=== PATIENT | female | born 1965 | race Caucasian/White ===

== ENCOUNTER → 2018-08-04 08:33 | Outpatient (CLI) | payer BC, SELFPAY ==
--- NOTE | 2018-08-04 | CA_ITS ---
PROCEDURE: 2-D M-mode and color Doppler study INDICATIONS FOR THE TEST: Chest pain+ COPD Heart Murmur Tobacco Smoking Palpitations Fatigue Syncope Edema Hypertension+Diabetes Mellitus Rheumatic Fever SOB+WU Obesity+Hyperlipidemia Family History HD Additional History PATIENT INFORMATION HEIGHT: 64 WEIGHT: 205 GENDER: Female B/P: 167/106 2-D/M-MODE INTERPRETATION: 2-D MEASUREMENTS OBSERVED VALUES IN CMS Right Ventricular Dimension (RVDd) 2.6 Interventricular Septum (Thickness)(IVsd) 0.9 Left Ventricular Internal Dimensions(LVIDd) 4.3 Left Ventricular Posterior Wall (Thickness)(LVPWd) 0.9 Aortic Root 2.8 Aortic Cusp Separation 2.0 Left Atrial Dimensions (LAD) 3.2 2D 1. Left atrium is normal size, left ventricle is normal size, there is no concentric left ventricular hypertrophy, visually estimated ejection fraction 55% with no regional wall motion abnormality. 2. The right atrium and right ventricle are normal size and contractility. 3. The aortic, mitral and tricuspid valve are grossly normal. 4. The pulmonic valve is poorly visualized. 5. No significant pericardial effusion noted. DOPPLER INTERROGATION: Doppler interrogation of the aortic, mitral and tricuspid valvular presence of mild mitral and tricuspid regurgitation, tricuspid regurgitation jet velocity is inadequate for calculation of the right ventricular systolic pressure, diastolic parameters are within normal range. CONCLUSION: 1. Normal left ventricular size, preserved left ventricular systolic function, visually estimated ejection fraction 55% with no regional wall motion abnormality, diastolic parameters are within normal range. 2. Mild mitral and tricuspid regurgitation 3. No significant pericardial effusion noted.
== END ==
PROVIDERS: PCP Family Medicine; Visit Provider Nurse Practitioner Family
DX: R07.9 Chest pain, unspecified (principal); I10 Essential (primary) hypertension
CPT/HCPCS: 93017; 93306

== ENCOUNTER → 2019-11-08 16:19 | Outpatient (CLI) | payer BC, SELFPAY ==
[2019-11-08 17:02] LABS: Basophils % 0.3 % (0.1-2.0); Eosinophils # 0.1 K/mm3 (0.0-0.4); Eosinophils % 1.3 % (0.1-12.0); Hemoglobin 14.1 g/dL (12.2-16.2); Lymphocytes # 2.8 K/mm3 (0.7-4.5); Lymphocytes % 33.3 % (10-50); Mean Corpuscular HGB Conc 33.4 g/dL (31.8-35.4); Mean Corpuscular Hemoglobin 32.4 pg (27.0-31.2); Mean Platelet Volume 8.2 fl (7.4-10.4); Monocytes # 0.4 K/mm3 (0.1-1.0); Monocytes % 4.2 % (1.7-9.3); Neutrophils # 5.2 K/mm3 (1.8-7.8); Neutrophils % 60.9 % (37.0-80.0); Platelet Count 232 K/mm3 (142-424); Red Blood Count 4.34 M/mm3 (4.20-5.40); Red Cell Distribution Width 13.2 % (11.5-17.5); White Blood Count 8.5 K/mm3 (4.8-10.8)
[2019-11-08 20:17] LABS: Chloride 105 mmol/L (98-107); Potassium 4.5 mmoL/L (3.5-5.1); Sodium 139 mmol/L (136-145)
[2019-11-08 20:20] LABS: Alanine Aminotransferase 86 U/L (12-78); Albumin Level 4.1 g/dl (3.5-5.0); Albumin/Globulin Ratio 1.4 (1.1-1.8); Alkaline Phosphatase 80 U/L (38-126); Anion Gap 12.5 mEq/L (5-15); Aspartate Amino Transferase 50 U/L (14-36); Bilirubin,Total 0.4 mg/dl (0.2-1.3); Blood Urea Nitrogen 11 mg/dl (7-17); Calcium 9.4 mg/dl (8.4-10.2); Carbon Dioxide 26 mmol/L (22.0-30.0); Estimated Glomerular Filt Rate 88 ml/min (>60); GFR (African American) 106 ML/MIN (>60); Glucose 93 mg/dl (74-100); Total Protein,Serum 7.1 g/dl (6.3-8.2)
[2019-11-08 20:21] LABS: Magnesium 2.2 mg/dl (1.6-2.3)
[2019-11-08 20:52] LABS: Thyroid Stimulating Hormone 0.62 uIU/mL (0.465-4.68)
[2019-11-10 13:06] LABS: Vitamin B12 904 pg/mL (232-1245)
[2019-11-14 19:43] LABS: Zinc 90 ug/dL (56-134)
== END ==
PROVIDERS: Visit Provider Nurse Practitioner Family
DX: R10.10 Upper abdominal pain, unspecified (principal); R43.2 Parageusia; K21.9 Gastro-esophageal reflux disease without esophagitis; R25.2 Cramp and spasm
CPT/HCPCS: 36415; 80053; 82607; 83735; 84443; 84630; 85025

== ENCOUNTER → 2019-12-04 08:20 | Outpatient (CLI) | payer BC, SELFPAY ==
--- NOTE | 2019-12-04 08:28 | US_ITS ---
PROCEDURE: US ABDOMEN LIMITED CLINICAL INDICATION: ELEVATED LIVER ENZYMES COMPARISON: US RUQ US RUQ-(ABD LTD)1ORGAN/QUAD/FU from 09/27/2016 FINDINGS: PANCREAS: Unremarkable. No obvious mass or abnormal fluid collection. No ductal dilatation LIVER: No focal liver lesions demonstrated. There is overall increased in somewhat coarsened appearing echogenicity consistent hepatic steatosis. There has been no significant interval progression of the fatty infiltration since the previous exam. Flow is hepatopetal in the nondilated main portal vein. RIGHT KIDNEY: The right kidney measures 10.0 x 4.2 x 5.9 cm and appears sonographically normal. GALLBLADDER: The gallbladder is normal in size and there may be a trace amount of biliary sludge but no definite gallstones are seen. The common bile duct is normal in caliber. IMPRESSION: Diffuse hepatic steatosis, question small amount of biliary sludge, no other abnormality noted Dictated by: Dr. Sander Terry MD 12/04/2019 10:30 Dr. Sander Terry MD in [place] 12/04/2019 10:30
== END ==
PROVIDERS: PCP Family Medicine; Visit Provider Family Medicine
DX: R74.8 Abnormal levels of other serum enzymes (principal)
CPT/HCPCS: 76705

== ENCOUNTER → 2021-07-02 16:41 | Outpatient (CLI) | payer BC, SELFPAY ==
[2021-07-02 17:27] LABS: Alanine Aminotransferase 91 U/L (12-78); Albumin Level 4.1 g/dl (3.5-5.0); Alkaline Phosphatase 84 U/L (38-126); Aspartate Amino Transferase 52 U/L (14-36); Bilirubin,Direct 0.1 mg/dl (0.0-0.4); Bilirubin,Indirect 0.2 mg/dL (0.0-0.9); Bilirubin,Total 0.3 mg/dl (0.2-1.3); Bilirubin,Unconjugated 0.2 mg/dL (0.0-1.1)
[2021-07-04 05:10] LABS: Hep A Ab, IgM Negative (Negative); Hepatitis B Core Antibody IgM Negative (Negative); Hepatitis B Surface Antigen Negative (Negative); Hepatitis C Antibody <0.1 s/co ratio (0.0-0.9)
== END ==
PROVIDERS: PCP Nurse Practitioner Family; Visit Provider Nurse Practitioner Family
DX: R74.8 Abnormal levels of other serum enzymes (principal)
CPT/HCPCS: 36415; 80074; 80076

== ENCOUNTER → 2021-07-08 08:11 | Outpatient (CLI) | payer BC, SELFPAY ==
--- NOTE | 2021-07-08 08:28 | US_ITS ---
FINAL REPORT CLINICAL HISTORY: ELEVATED LIVER ENZYMES; obesity COMPARISON: December 04, 2019 FINDINGS: Sonographic images of the right upper quadrant were obtained. The pancreas is partially obscured.The liver is fatty infiltrated.The gallbladder appears normal without evidence of gallstones.There is no evidence of biliary ductal dilatation.The common duct measures 4mm. Limited images of the right kidney are unremarkable. IMPRESSION: Fatty infiltration of the liver. Reviewed, Interpreted and Dictated by Ghulam Panchal III, MD Transcribed by Brock Ricks Authenticated by Ghulam Panchal III, MD on 07/08/2021 10:15:06 AM [facility]
== END ==
PROVIDERS: PCP Nurse Practitioner Family; Visit Provider Nurse Practitioner Family
DX: R74.8 Abnormal levels of other serum enzymes (principal)
CPT/HCPCS: 76705

== ENCOUNTER → 2022-01-19 14:43 | Outpatient (CLI) | payer OTHER, SELFPAY ==
--- NOTE | 2022-01-19 15:21 | XR_ITS ---
FINAL REPORT CLINICAL HISTORY: SWELLING MASS AND LUMP LEFT LOWER LIMB FINDINGS: Left tibia fibula Two views were obtained. There is no acute fracture or dislocation. The joint spaces appear normal. No soft tissue abnormality is identified. No mass is identified. IMPRESSION: No mass identified. Reviewed, Interpreted and Dictated by Ghulam Panchal III, MD Transcribed by Ann Oneill Authenticated and [facility]
--- NOTE | 2022-01-19 15:21 | XR_ITS ---
FINAL REPORT CLINICAL HISTORY: LEFT LOWER LIMB SWELLING MASS AND LUMP FINDINGS: Left knee Three views were obtained. There is no acute fracture or dislocation. No joint effusion is identified. The joint spaces appear normal. No soft tissue abnormality is identified. IMPRESSION: No acute process. Reviewed, Interpreted and Dictated by Ghulam Panchal III, MD Transcribed by Ann Oneill Authenticated and [facility]
[2022-01-19 16:01] LABS: Chloride 103 mmol/L (98-107); Potassium 4.1 mmoL/L (3.5-5.1); Sodium 140 mmol/L (136-145)
[2022-01-19 16:03] LABS: Alanine Aminotransferase 85 U/L (12-78); Alkaline Phosphatase 93 U/L (38-126); Anion Gap 13.1 mEq/L (5-15); Aspartate Amino Transferase 59 U/L (14-36); Bilirubin,Total 0.4 mg/dl (0.2-1.3); Blood Urea Nitrogen 10 mg/dl (7-17); Carbon Dioxide 28 mmol/L (22.0-30.0); Estimated Glomerular Filt Rate 87 ml/min (>60); GFR (African American) 105 ML/MIN (>60)
[2022-01-19 16:04] LABS: Albumin Level 4.4 g/dl (3.5-5.0); Albumin/Globulin Ratio 1.5 (1.1-1.8); Calcium 9.3 mg/dl (8.4-10.2); Glucose 79 mg/dl (74-100); Total Protein,Serum 7.4 g/dl (6.3-8.2)
[2022-01-19 16:09] LABS: C-Reactive Protein 5.2 mg/L (0-4)
[2022-01-19 17:18] LABS: Erythrocyte Sedimentation Rate 19 mm/hr (0-30)
[2022-01-19 17:19] LABS: Uric Acid 5.3 mg/dl (2.5-6.2)
[2022-01-21 07:14] LABS: RA Latex Turbid. 12.3 IU/mL (<14.0)
[2022-01-22 08:16] LABS: Antinuclear Antibodies, IFA Negative (.)
== END ==
LOC: LAB 14:45 → RAD 14:46
PROVIDERS: PCP Nurse Practitioner Family; Visit Provider Nurse Practitioner Family
DX: R22.42 Localized swelling, mass and lump, left lower limb (principal); M25.50 Pain in unspecified joint; K76.0 Fatty (change of) liver, not elsewhere classified; R74.8 Abnormal levels of other serum enzymes
CPT/HCPCS: 36415; 73562; 73590; 80053; 84550; 85651; 86038; 86140; 86431

== ENCOUNTER 2024-08-16 06:31 | Day surgery (SDC) | payer OTHER, SELFPAY ==
[2024-08-14 15:43] VITALS: BMI 36.0
[2024-08-16] MEDS: LACTATED RINGERS 1000ML 1,000 ML 50 ML IV (06:53)
[2024-08-16 06:55] VITALS: BP 130/79; PULSE 72; RESP 18; TEMP 36.6; O2SAT 97
--- NOTE | 2024-08-16 07:13 | EXP.ANES.CKL ---
[facility] Disclaimer: The information contained in this section may have been updated after the patient was seen, as this information can be updated by other users. Medical History Hyperlipidemia Hypertension History of LEEP (loop electrosurgical excision procedure) of cervix complicating Surgical History H/O dilation and curettage History of bunionectomy Tubal ligation status Family History Other No significant family history Social History Smoking Status: Current every day smoker alcohol intake: never substance use type: unknown current occupational status: employed Travel in the last 8 weeks?: None [facility] Anesthesia Checklist Patient Identification Patient Identification: Arm Band and Verbal (Name & ) Structural Data Admitted From: Home Planned Operative Procedure/s: colonscopy Consent for Planned Operative Procedure(s) Verified: Yes Verified Documents: Surgical Consent and History and Physical NPO Status Verified Time NPO: 00:00 Additional verifications Anesthesia Reactions: No Airway Assessment Mallampati Score:: Class II Dentition: Good Dentition Neurological Assessment Level of Consciousness: Awake, Alert and Appropriate Hx Seizures: No Anesthesia Plan Anesthesia Risk discussed: Yes Anesthesia Plan: Verified ASA Class: II Anesthesia Type: MAC
--- NOTE | 2024-08-16 07:45 | P.HP_ITS ---
History of Present Illness *Admission Date: 08/16/24 *Reason for visit:: Screening/surveillance for colon cancer *History of present illness: Mrs. Joseph is a 59-year-old female who is here for screening colonoscopy. Her last colonoscopy was 12 years ago and she does state that polyps were removed. The examination is deemed medically necessary for screening colonoscopy. The patient has been seen, interviewed and examined prior to the procedure by both myself and the anesthesia provider. [facility] Disclaimer: The information contained in this section may have been updated after the patient was seen, as this information can be updated by other users. Medical History Hyperlipidemia Hypertension History of LEEP (loop electrosurgical excision procedure) of cervix complicating Surgical History H/O dilation and curettage History of bunionectomy Tubal ligation status Family History Other No significant family history Social History (Updated 08/16/24 @ 07:14 by Lona Botello CRNA) Smoking Status: Current every day smoker alcohol intake: never substance use type: unknown current occupational status: employed Travel in the last 8 weeks?: None Have you lived/traveled outside US in past 30 days?: No Contact w/someone who lives/traveled outside US past 30 days?: No Exposure to someone with infectious disease in past 14 days?: No Do you have a fever (greater than 100.4 F or 38 C)?: No Have you tested positive for COVID-19?: No Exposed to someone with COVID-19 in past 14 days?: No Do you have a sore throat?: No Do you have a cough?: No Do you have any weakness?: No Do you have any diarrhea?: No Are you experiencing any unusual bleeding?: No Do you have any muscle aches/pain?: No Do you have any abdominal pain?: No Are you experiencing loss of taste or smell?: No Review of Systems Review of Systems Review of systems (narrative): Negative *Cardiovascular Comments: Negative *Gastrointestinal Comments: Negative *Genitourinary Comments: Negative *Musculoskeletal Comments: Negative *Neurologic Comments: Negative Meds Home Medications and Allergies Home Medications ?Medication ?Instructions ?Recorded ?Confirmed ?Type amlodipine 5 mg tablet 5 mg PO DAILY 08/14/24 08/14/24 History atorvastatin 20 mg tablet 20 mg PO DAILY 08/14/24 08/14/24 History cholecalciferol (vitamin D3) 50 50 mcg PO WEEKLY 08/14/24 08/14/24 History mcg (2,000 unit) tablet (Vitamin D3) escitalopram oxalate 20 mg tablet 20 mg PO DAILY 08/14/24 08/14/24 History lisinopril 20 mg tablet 20 mg PO DAILY 08/14/24 08/14/24 History omega-3 fatty acids 1,000 mg PO DAILY 08/14/24 08/14/24 History pravastatin 10 mg tablet 10 mg PO DAILY 08/14/24 08/14/24 History New Prescriptions to Start Prescriptions: Allergies Allergy/AdvReac Type Severity Reaction Status Date / Time No Known Drug Allergies Allergy Unknown Other Verified 08/16/24 06:52 (NKDA) Exam Data for Last 24 hours Vital signs and Labs for Last 24 Hours: Temp Pulse Resp BP Pulse Ox O2 Del Method 97.9 F 72 18 130/79 97 Room Air 08/16/24 06:55 08/16/24 06:55 08/16/24 06:55 08/16/24 06:55 08/16/24 06:55 08/16/24 06:55 I & O for Last 24 hours: Intake & Output 08/13/24 08/14/24 08/15/24 08/16/24 23:59 23:59 23:59 23:59 Weight 210 lb *Routine HEENT Exam Head: Present normocephalic Eye: Present EOMI and PERRL ENT: Present mucous membranes moist *Routine Neck Exam Neck: Present supple *Routine Respiratory Exam Respiratory: Present CTA bilaterally *Routine Cardiovascular Exam Cardiovascular: Present RRR *Routine Abdominal Exam Abdominal: Present soft and normoactive bowel sounds; Absent tenderness *Routine Rectal Exam Rectal:: deferred *Routine Genitalia Exam Genitalia:: deferred *Routine Extremities Exam Extremities: Absent cyanosis, clubbing or edema *Routine Skin Exam Skin: Present warm; Absent rash *Routine Neurological Exam Neurological: Present alert and oriented X3 Assessment and Plan *Assessment and plan (1) Screening for colon cancer: Status: Acute Category: Medical Code(s): Z12.11 - Encounter for screening for malignant neoplasm of colon (2) Personal history of colon polyps, unspecified: Status: Acute Category: Medical Code(s): Z86.0100 - Personal history of colon polyps, unspecified Plan A/P: 1. Screening for colon cancer and prior history of polyps (unspecified) is the preprocedural diagnosis. Her last colonoscopy was 12 years ago. The patient will be anesthetized/sedated using MAC sedation. The patient has been seen and examined. Cardiac and lung assessment prior to the examination is stable. Proceed with planned screening/surveillance colonoscopy.
--- NOTE | 2024-08-16 07:49 | HMH.PROCNOTE ---
[facility] Procedure Note Date: 08/16/24 Time: 08:02 Procedure Note:: Colonoscopy Procedure Report: Colonoscopy with cold snare polypectomy Endoscopist: Adelfo Collins II, MD Referring physician: Michelle ANGEL Date of Procedure: August 16, 2024 Equipment: Olympus 190 variable stiffness pediatric colonoscope Sedation: MAC sedation Indication: Mrs. Joseph is a 59-year-old female who is here for follow-up screening/surveillance colonoscopy. The patient's last colonoscopy was 12 years ago at which time polyps (unspecified) were removed. The patient reports no abdominal pain, weight loss, change in her bowel habits or rectal bleeding. She reports no family history of colon cancer. Procedure: Prior to the procedure, a history and physical exam was performed, and patient's medications and allergies were reviewed. The risks, benefits and alternatives of the sedation and procedure were discussed with the patient. All questions were answered and informed consent was obtained. The patient was brought to the procedure room. Patient identification and proposed procedure were verified by the physician and the nurse. The patient was placed in a left lateral decubitus position and the scope was passed under direct vision. Throughout the procedure, the patient's blood pressure, pulse, and oxygen saturations were monitored continuously. The colonoscopy was accomplished without difficulty. The patient tolerated the procedure well. Findings: On digital rectal examination there was normal rectal tone. There were no external hemorrhoids. The colonoscope was introduced through the anal canal to the rectum and advanced to the cecum. The ileocecal valve and appendiceal orifice were identified. The scope was advanced a short distance into the ileum which appeared grossly normal. The scope was then withdrawn into the colon. The cecum, ascending, transverse, descending and sigmoid colon were grossly normal. There were no mucosal abnormalities identified. There were 2 diminutive hyperplastic appearing 3 mm polyps in the rectum and both were removed via cold snare polypectomy. Upon retroflexion within the rectum there were grade 1 internal hemorrhoids. The preparation was excellent throughout with [place] Preparation Score of 9. The cecal time was 12 minutes. Impression: 1. Diminutive rectal polyps x 2?probable hyperplastic polyps Plan: I will follow-up the polyp histology and if the polyps are hyperplastic, she will not require surveillance colonoscopy again for 10 years.
[2024-08-16 07:51] VITALS: O2SAT 95
[2024-08-16 08:04] VITALS: BP 85/53; PULSE 74; RESP 16; TEMP 36.2; O2SAT 93
[2024-08-16 08:14] VITALS: BP 102/74; PULSE 64; RESP 16; O2SAT 97
[2024-08-16 08:24] VITALS: BP 100/65; PULSE 60; RESP 16; O2SAT 98
[2024-08-16 08:34] VITALS: BP 119/71; PULSE 64; RESP 16; O2SAT 98
== END 2024-08-16 08:45 | disposition home or self-care (01) ==
PROVIDERS: PCP Nurse Practitioner; Visit Provider Internal Medicine Gastroenterology
PROC: 0DJD8ZZ Inspection of Lower Intestinal Tract, Via Natural or Artificial Opening Endoscopic (ICD-10-PCS; CPT 45378; principal; 2024-08-16 08:00)
DX: Z12.11 Encounter for screening for malignant neoplasm of colon (principal); Z86.0100 Personal history of colon polyps, unspecified; K63.5 Polyp of colon; K64.0 First degree hemorrhoids
CPT/HCPCS: 45385; J7120

== ENCOUNTER 2024-08-21 16:28 | Outpatient (CLI) | payer OTHER, SELFPAY ==
--- NOTE | 2024-08-21 16:34 | MM_ITS ---
PROCEDURE INFORMATION: Exam: MG Bilateral Screening 3D Mammography Exam date and time: 08/21/2024 4:35 PM Age: 59 years old Clinical indication: Screening. No family history of breast cancer. TECHNIQUE: Imaging protocol: Bilateral Screening tomosynthesis and 2D mammography including computer-aided detection (CAD) when performed. COMPARISON: 1. MG DMSB DIG MAMM-SCREEN ISIAH 07/23/2014 9:28 AM 2. MG DMSB DIGITAL MAMM-SCREEN BILATERAL 08/18/2010 4:31 PM 3. MG DIGMAMMDX MAMMOGRAM DX-INTERNATIONAL ACCOUNT REPRESENTATIVE N/C 08/22/2003 5:04 PM 4. MG DIGMAMMS MAMMOGRAM SCREEN-INTERNATIONAL ACCOUNT REPRESENTATIVE N/C 03/07/2003 5:19 PM FINDINGS: MAMMOGRAPHY: Breast composition: The breasts are almost entirely fatty. Mass: None. Architectural distortion: None. Calcifications: No suspicious calcifications. Asymmetric density: None. Skin thickening: None. Axillary adenopathy: None. IMPRESSION: No mammographic evidence of malignancy. Annual screening is recommended unless otherwise clinically indicated. ASSESSMENT: BI-RADS 1, Negative.
== END 2024-08-21 23:59 | disposition home or self-care (01) ==
LOC: RAD 16:30
PROVIDERS: PCP Nurse Practitioner Family; Referring Provider Nurse Practitioner; Visit Provider Nurse Practitioner
DX: Z12.31 Encounter for screening mammogram for malignant neoplasm of breast (principal); R92.313 Mammographic fatty tissue density, bilateral breasts
CPT/HCPCS: 77063; 77067

== ENCOUNTER 2024-11-21 15:58 | Outpatient (CLI) | payer OTHER, SELFPAY ==
--- OUTSIDE RECORDS SUMMARY | 2024-11-21 16:02 | XMS_ITS | Clinical Summary ---
Author Organization [employer] ([place], [place], [place], [place]) Address [address] [place] [address] Care Team Providers Care Seal Mixer Name Role Phone Unavailable Primary Care Provider Unavailabl e Social History Tobacco Use Types Packs/Day Years Used Date Smoking Tobacco: Never Assessed Comments Unknown Sex and Gender Information Value Date Recorded Sex Assigned at Female 09/29/2021 8:29 PM CDT Legal Sex Female 8:29 PM CDT Gender Identity Female 09/29/2021 8:29 PM CDT Sexual Orientation Not on file Plan of Treatment Not on file Insurance [facility]
--- OUTSIDE RECORDS SUMMARY | 2024-11-21 16:02 | XMS_ITS | Referral Summary ---
Author Organization [employer] ([place], [place], [place], [place]) Address [address] [place] [address] Care Team Providers Care Barrel Endshake Adjuster Name Role Phone Unavailable Primary Care Provider [...] Plan of Treatment Not on file Insurance [facility]
[2024-11-21 18:26] LABS: Thyroid Stimulating Hormone 0.41 uIU/mL (0.465-4.68)
[2024-11-21 18:45] LABS: Vitamin B12 484 pg/mL (239-931)
== END 2024-11-21 23:59 | disposition home or self-care (01) ==
LOC: LAB 15:59
PROVIDERS: PCP Nurse Practitioner; Visit Provider Specialist
DX: F32.A Depression, unspecified (principal); D75.1 Secondary polycythemia; D75.89 Other specified diseases of blood and blood-forming organs; I10 Essential (primary) hypertension; R51.9 Headache, unspecified; R63.5 Abnormal weight gain; R06.83 Snoring
CPT/HCPCS: 36415; 82607; 84443

== ENCOUNTER → 2024-12-28 06:27 | Outpatient (CLI) | payer OTHER, SELFPAY | LOC: SL 06:28 | PROVIDERS: PCP Specialist; Visit Provider Specialist | DX: F32.A Depression, unspecified; R51.9 Headache, unspecified; R06.83 Snoring; I10 Essential (primary) hypertension | CPT/HCPCS: G0399 ==